=== PATIENT | male | born 1990 | race Two or more races ===

== ENCOUNTER 2019-07-28 16:47 | Emergency (ER) | payer SELFPAY ==
[~2019-07-28] VITALS: Ht 180.3 cm; Wt 131.5 kg
[2019-07-28] MEDS ORDERED: SODIUM CHLORIDE 0.9% 1,000 ML IV ONE (17:45)
[2019-07-28] MEDS ORDERED: ONDANSETRON HCL 4 MG/2 ML VIAL IV ONE (17:45)
[2019-07-28] MEDS ORDERED: MORPHINE SULFATE 4 MG/ML SYR/VIAL IV ONE ×2 (17:45→20:00)
[2019-07-28] MEDS ORDERED: LIDOCAINE 1% HCL (LOCAL ANESTH.) INJ 20ML MDV ID ONE (19:30)
[2019-07-28] MEDS ORDERED: LIDOCAINE 1% HCL (LOCAL ANESTH.) INJ 20ML MDV ONE (20:05)
[2019-07-28 21:00] VITALS: BP 119/75
[2019-07-28] MEDS ORDERED: cefTRIAXone 1GM/50ML D5W 50 ML IV ONE (21:00)
== END 2019-07-28 22:49 | disposition home or self-care (01) ==
LOC: ER 16:50
DX: S01.01XA Laceration without foreign body of scalp, initial encounter (principal); S91.204A Unspecified open wound of right lesser toe(s) with damage to nail, initial encounter; W19.XXXA Unspecified fall, initial encounter; Y93.89 Activity, other specified; Y99.8 Other external cause status; Y92.89 Other specified places as the place of occurrence of the external cause
CPT/HCPCS: 11730; 12001; 70450; 73630; 96365; 96375; 96376; 99284; J0696; J2001; J2270; J2405; L3260